=== PATIENT | male | born 1970 | race Caucasian/White ===

== ENCOUNTER → 2017-01-25 | Outpatient (CLI) | payer OTHER ==
[2017-01-25 12:46] LABS: BASO % 0.6 % (0.0-1.0); EOS # 0.2 K/mm3 (0.0-0.50); LARGE UNSTAINED CELL # 0.1 K/mm3 (0.0-0.4); LARGE UNSTAINED CELL % 1.6 % (0.0-4.0); LYMPH # 0.6 K/mm3 (1.5-4.5); LYMPH % 13.9 % (24.0-44.0); MEAN CORPUSCULAR HEMOGLOBIN 30.2 pg (27.0-33.0); MEAN CORPUSCULAR HGB CONC 34.4 g/dl (32.0-36.5); MEAN CORPUSCULAR VOLUME 87.8 fl (80.0-96.0); MONO # 0.4 K/mm3 (0.0-0.8); MONO % 9.8 % (0.0-5.0); NEUTROPHILS # 2.5 K/mm3 (1.8-7.7); NEUTROPHILS % 69.1 % (36.0-66.0); PLATELET COUNT, AUTOMATED 204 k/mm3 (150-450); RED CELL DISTRIBUTION WIDTH 13.2 % (11.5-14.5); WHITE BLOOD COUNT 3.6 K/mm3 (4.0-10.0)
[2017-01-25 13:27] LABS: ALBUMIN 3.5 GM/DL (3.2-5.2); ALBUMIN/GLOBULIN RATIO 1.09 (1.00-1.93); ALKALINE PHOSPHATASE 53 U/L (45-117); ALT/SGPT 35 U/L (12-78); ANION GAP 5 MEQ/L (8-16); AST/SGOT 18 U/L (15-37); BILIRUBIN,TOTAL 0.4 MG/DL (0.2-1.0); BLOOD UREA NITROGEN 16 MG/DL (7-18); CALCIUM LEVEL 9.1 MG/DL (8.5-10.1); CARBON DIOXIDE LEVEL 29 MEQ/L (21-32); CHLORIDE LEVEL 108 MEQ/L (98-107); CHOLESTEROL LEVEL 234 MG/DL (<200); CREATININE FOR GFR 1.19 MG/DL (0.70-1.30); GLOMERULAR FILTRATION RATE > 60.0 (>60); GLUCOSE, FASTING 89 MG/DL (70-105); POTASSIUM SERUM 4.2 MEQ/L (3.5-5.1); SODIUM LEVEL 142 MEQ/L (136-145); TOTAL PROTEIN 6.7 GM/DL (6.4-8.2); TRIGLYCERIDES LEVEL 153 MG/DL (<150)
== END ==
LOC: M WUC 08:30
PROVIDERS: ATTEND Emergency Medicine
DX: E78.2 Mixed hyperlipidemia (principal)

== ENCOUNTER → 2017-11-30 | Outpatient (CLI) | payer OTHER ==
[2017-11-30 12:35] LABS: BASO % 0.5 % (0.0-1.0); EOS # 0.3 10^3/uL (0.0-0.50); EOS % 7.7 % (0.0-3.0); HEMATOCRIT 47.3 % (42.0-52.0); HEMOGLOBIN 15.6 g/dl (13.5-17.5); IMMATURE GRANULOCYTE % 0.3 % (0-3.0); LYMPH # 0.7 10^3/uL (1.5-4.5); LYMPH % 17.6 % (24.0-44.0); MEAN CORPUSCULAR HEMOGLOBIN 28.3 pg (27.0-33.0); MEAN CORPUSCULAR VOLUME 85.8 fl (80.0-96.0); MONO # 0.5 10^3/uL (0.0-0.8); NEUTROPHILS # 2.3 10^3/uL (1.8-7.7); NEUTROPHILS % 61.9 % (36.0-66.0); PLATELET COUNT, AUTOMATED 216 10^3/uL (150-450); RED BLOOD COUNT 5.51 10^6/uL (4.30-6.10); RED CELL DISTRIBUTION WIDTH 13.2 % (11.5-14.5); WHITE BLOOD COUNT 3.8 10^3/uL (4.0-10.0)
[2017-11-30 12:54] LABS: ALBUMIN 3.6 GM/DL (3.2-5.2); ALBUMIN/GLOBULIN RATIO 1.06 (1.00-1.93); ALKALINE PHOSPHATASE 66 U/L (45-117); ALT/SGPT 49 U/L (12-78); ANION GAP 4 MEQ/L (8-16); AST/SGOT 26 U/L (7-37); BILIRUBIN,TOTAL 0.7 MG/DL (0.2-1.0); BLOOD UREA NITROGEN 17 MG/DL (7-18); CALCIUM LEVEL 8.8 MG/DL (8.5-10.1); CARBON DIOXIDE LEVEL 30 MEQ/L (21-32); CHLORIDE LEVEL 110 MEQ/L (98-107); CHOLESTEROL LEVEL 171 MG/DL (<200); CREATININE FOR GFR 1.16 MG/DL (0.70-1.30); GLOMERULAR FILTRATION RATE > 60.0 (>60); GLUCOSE, FASTING 84 MG/DL (70-100); HDL CHOLESTEROL 45 MG/DL (>40); LDL CHOLESTEROL 109.2 MG/DL (<100); NON-HDL-C 126 MG/DL; POTASSIUM SERUM 4.6 MEQ/L (3.5-5.1); SODIUM LEVEL 144 MEQ/L (136-145); TRIGLYCERIDES LEVEL 84 MG/DL (<150)
== END ==
LOC: M WUC 09:18
DX: E78.2 Mixed hyperlipidemia (principal)
CPT/HCPCS: 80053

== ENCOUNTER 2019-04-15 17:54 | Emergency (ER) | payer OTHER ==
[~2019-04-15] VITALS: Ht 175.3 cm; Wt 115.5 kg
[2019-04-15] MEDS ORDERED: ASPIRIN 81 MG CHEW TABLET PO ONE (18:15)
[2019-04-15] MEDS ORDERED: GI COCKTAIL 50ML BTL(HYOSCYAMINE/MAALOX/LIDOCAINE VISCOUS)(1:3:1) PO ONE (18:15)
[2019-04-15] MEDS ORDERED: ATOR1TAB21 PO (18:38)
[2019-04-15 18:43] LABS: BASO % 0.4 % (0.0-1.0); EOS # 0.4 10^3/uL (0.0-0.50); EOS % 8.8 % (0.0-3.0); HEMATOCRIT 47.3 % (42.0-52.0); HEMOGLOBIN 15.8 g/dl (13.5-17.5); LYMPH # 0.6 10^3/uL (1.5-4.5); LYMPH % 13.2 % (24.0-44.0); MEAN CORPUSCULAR HEMOGLOBIN 29.3 pg (27.0-33.0); MEAN CORPUSCULAR HGB CONC 33.4 g/dl (32.0-36.5); MEAN CORPUSCULAR VOLUME 87.8 fl (80.0-96.0); MONO # 0.7 10^3/uL (0.0-0.8); NEUTROPHILS % 63.4 % (36.0-66.0); PLATELET COUNT, AUTOMATED 227 10^3/uL (150-450); RED BLOOD COUNT 5.39 10^6/uL (4.30-6.10); WHITE BLOOD COUNT 4.8 10^3/uL (4.0-10.0)
[2019-04-15 19:06] LABS: INR 0.94; PROTHROMBIN TIME 12.3 SECONDS (11.8-14.0)
[2019-04-15 19:12] LABS: ALBUMIN 3.5 GM/DL (3.2-5.2); ALT/SGPT 32 U/L (12-78); BILIRUBIN,DIRECT 0.1 MG/DL (0.0-0.2); BILIRUBIN,TOTAL 0.5 MG/DL (0.2-1.0); BLOOD UREA NITROGEN 24 MG/DL (7-18); CARBON DIOXIDE LEVEL 24 MEQ/L (21-32); CHLORIDE LEVEL 109 MEQ/L (98-107); CK-MB VALUE MASS 1.1 NG/ML (<3.6); CPK CREATINE PHOSPHOKINASE 145 U/L (39-308); CREATININE FOR GFR 1.15 MG/DL (0.70-1.30); GLOMERULAR FILTRATION RATE > 60.0 (>60); GLUCOSE, FASTING 93 MG/DL (70-100); LIPASE 185 U/L (73-393); MB/CK RELATIVE INDEX 0.76 (< OR =4); POTASSIUM SERUM 4.1 MEQ/L (3.5-5.1); SODIUM LEVEL 142 MEQ/L (136-145); TROPONIN I < 0.02 NG/ML (< 0.10)
--- NOTE | 2019-04-15 19:16 | REP ---
Chest x-ray: Two views. History: Chest pain. Findings: There is a triangular opacity along the course of the minor fissure on the right which is most likely perihilar discoid atelectasis versus some fissural fluid. The pleural angles are sharp. Heart is not enlarged. Lung walker are otherwise clear. There are mild degenerative changes in the thoracic spine. Impression: Triangular opacity in the right mid lung field, atelectasis versus fissural fluid versus other parenchymal opacity. This measures 2.9 cm in greatest diameter. Consider chest CT study. Otherwise no acute disease. Electronically Signed by Giancarlo Klein MD 04/15/2019 07:27 P
[2019-04-15] MEDS ORDERED: SUCRALFATE SUSP 1GM/10ML UD PO ONE (19:30)
[2019-04-15] MEDS ORDERED: ISOVUE-370 76% 100ML VIAL (Q9967) As Ordered ONE (19:33)
[2019-04-15 19:50] VITALS: BP 122/71
--- NOTE | 2019-04-15 20:13 | REPVR ---
EXAM: CT Chest With Contrast EXAM DATE/TIME: 04/15/2019 7:41 PM CLINICAL HISTORY: 48 years old, male; Chest pain; Additional info: Opacity TECHNIQUE: Imaging protocol: Computed tomography of the chest with intravenous contrast. 3D rendering: MIP reconstructed images were created and reviewed. Radiation optimization: All CT scans at this facility use at least one of these dose optimization techniques: automated exposure control; mA and/or kV adjustment per patient size (includes targeted exams where dose is matched to clinical indication); or iterative reconstruction. Contrast material: ISOVUE 379; Contrast volume: 100 ml; Contrast route: IV; COMPARISON: CR Chest, 2 view PA, Lat 04/15/2019 6:53 PM FINDINGS: Lungs: Calcified granuloma noted in the left lower lobe. There are are multiple subcentimeter fuzzy nodules noted in both lungs There is right sided perihilar soft tissue thickening with subsegmental atelectasis noted in the anterior segment of the right upper lobe. There is nodular thickening of the intra-lobular septa in the area adjacent to the atelectasis in the right upper lobe . "Tree in bud" pattern of airspace disease noted in the posterior segment of the right upper lobe and in the posterior basal segment of the left lower lobe. Pleural space: Unremarkable. No pneumothorax. No pleural effusion. Heart: Unremarkable. No cardiomegaly. No pericardial effusion. Aorta: Unremarkable. No aortic aneurysm. Lymph nodes: Scattered right paratracheal lymph nodes noted. A right paratracheal lymph node measures 1.6 x 1 x 1.4 cm. Subcentimeter prevascular lymph nodes. Bones/joints: Unremarkable. No acute fracture. Soft tissues: Unremarkable. Liver: Multiple (too numerous to count) low density lesions are noted within the liver. Spleen: Multiple (too numerous to count) low density lesions are seen within the spleen IMPRESSION: 1. Multiple bilateral fuzzy pulmonary nodules with right perihilar soft tissue thickening and subsegmental atelectasis in the right upper lobe. The appearance suggests metastatic disease. 2. Multiple low density liver and splenic lesions. Rule out Metastatic disease Electronically signed by: Renetta Coburn On 04/15/2019 20:13:02 PM
[2019-04-15] MEDS ORDERED: PRIL20TA2 PO (20:33)
--- NOTE | 2019-04-16 20:41 | ECGEPIP ---
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
--- NOTE | 2019-04-19 07:32 | ED PDOC ---
Post-Departure Follow-Up dr leigh faxed formal report of ct chest for fu Donaldo Holley MD Apr 19, 2019 07:32
== END 2019-04-15 20:57 | disposition home or self-care (01) ==
LOC: M ED 17:54
DX: R91.1 Solitary pulmonary nodule (principal); K76.89 Other specified diseases of liver; D73.9 Disease of spleen, unspecified; Z79.899 Other long term (current) drug therapy
CPT/HCPCS: 36415; 71046; 71260; 80048; 80076; 82550; 82553; 83690; 84484; 85025; 85610; 93005; 93041; 94760; 99284; Q9967

== ENCOUNTER → 2019-07-15 | Outpatient (CLI) | payer OTHER ==
[~2019-07-15] MED LIST: ATOR1TAB21 PO; PRIL20TA2 PO
--- NOTE | 2019-07-16 14:20 | ECHO ---
DATE OF SERVICE: 07/15/2019 REFERRING PROVIDER: Dr. Montez Neal PATIENT LOCATION: Outpatient REASON FOR THE STUDY: Shortness of breath. 2D MEASUREMENTS: IVS: 1.0 cm LV: 5.9 cm LVPW: 1.0 cm LA: 4.2 cm Aorta: 3.7 cm RV: 3.4 cm IVC: 1.4 cm DOPPLER MEASUREMENTS: Peak velocity across the aortic valve: 1.2 m/s Peak velocity across the LVOT: 0.88 m/s Mitral E: 0.50 Mitral A: 0.51, with a ratio of about 1.0 2D COMMENTS: 1. Technically limited study due to poor acoustic window. 2. The left ventricular size subjectively appeared to be normal with normal left ventricular wall thickness and a low normal global left ventricular systolic function. The estimated left ventricular systolic inversion is 55-60%. 3. Mildly enlarged left atrium. The right atrium and the right ventricle in limited views appear to be normal in size but with increased left ventricular wall thickness. 4. The atrial septum appeared to be normal without evidence of defect or shunt. 5. Normal aortic root. 6. No pericardial effusion seen. 7. The aortic valve, mitral valve, and tricuspid valve appeared to be normal. The pulmonic valve also appeared to be normal. The proximal pulmonary artery branches were well visualized and may be mildly enlarged. 8. The inferior vena cava was normal in size, central venous pressure is probably normal. DOPPLER: No significant valvular abnormality detected. Abnormal relaxation pattern was noted across the mitral valve leaflets as well as the mitral annulus consistent with features of grade 1 left ventricular diastolic dysfunction. IMPRESSION: 1. Technically limited study due to poor acoustic window. 2. Low normal global left ventricular systolic function. There were some features of grade 1 left ventricular diastolic dysfunction manifested by abnormal relaxation. 3. No significant valvular abnormalities detected. Unable to assess pulmonary artery pressure.
== END ==
LOC: M CARPUL 13:00
PROVIDERS: ATTEND Internal Medicine Pulmonary Disease
DX: D86.2 Sarcoidosis of lung with sarcoidosis of lymph nodes (principal); R06.00 Dyspnea, unspecified

== ENCOUNTER → 2019-08-15 | Outpatient (CLI) | payer OTHER | LOC: M SLEEP 20:00 | PROVIDERS: ATTEND Internal Medicine Pulmonary Disease | DX: G47.33 Obstructive sleep apnea (adult) (pediatric) (principal) ==

== ENCOUNTER → 2019-09-06 | Outpatient (CLI) | payer OTHER | LOC: M SLEEP 20:00 | PROVIDERS: ATTEND Internal Medicine Pulmonary Disease | DX: G47.33 Obstructive sleep apnea (adult) (pediatric) (principal) ==

== ENCOUNTER → 2020-01-30 | Outpatient (CLI) | payer OTHER ==
[2020-01-30 18:21] LABS: ALBUMIN 3.4 GM/DL (3.2-5.2); ALT/SGPT 40 U/L (12-78); BILIRUBIN,TOTAL 0.7 MG/DL (0.2-1.0); BLOOD UREA NITROGEN 21 MG/DL (7-18); CALCIUM LEVEL 8.7 MG/DL (8.5-10.1); CARBON DIOXIDE LEVEL 29 MEQ/L (21-32); CHLORIDE LEVEL 107 MEQ/L (98-107); CHOLESTEROL LEVEL 176 MG/DL (<200); CHOLESTEROL RISK RATIO 4.512 (<5); CREATININE FOR GFR 1.14 MG/DL (0.70-1.30); GLOMERULAR FILTRATION RATE > 60.0 (>56); GLUCOSE, FASTING 79 MG/DL (70-100); HDL CHOLESTEROL 39 MG/DL (>40); LDL CHOLESTEROL 123 MG/DL (<100); NON-HDL-C 137 MG/DL; POTASSIUM SERUM 4.9 MEQ/L (3.5-5.1); SODIUM LEVEL 139 MEQ/L (136-145); TOTAL PROTEIN 7.2 GM/DL (6.4-8.2); TRIGLYCERIDES LEVEL 71 MG/DL (<150)
== END ==
LOC: M WUC 08:25
PROVIDERS: ATTEND Physician Assistant
DX: E78.2 Mixed hyperlipidemia (principal)

== ENCOUNTER → 2020-02-15 | Outpatient (CLI) | payer OTHER ==
[~2020-02-15] MED LIST changes: +OMEP20.6 PO
== END ==
LOC: M LABSMTC 10:47
PROVIDERS: ATTEND Anesthesiology
DX: Z01.818 Encounter for other preprocedural examination (principal); Z11.59 Encounter for screening for other viral diseases
CPT/HCPCS: C9803; U0003

== ENCOUNTER 2020-02-18 08:51 | Day surgery (SDC) | payer OTHER ==
[~2020-02-18] VITALS: Ht 175.3 cm; Wt 118.6 kg
[~2020-02-18 08:51] MED LIST changes: +NS 1,000 ML IV ONE; +propofoL 200 MG/20 ML VIAL As Ordered ONE
--- NOTE | 2020-02-18 11:30 | ROOR ---
Patient Name: Kayden Birmingham Procedure Date: 02/18/2020 11:00 AM Date of : 1970 Age: 49 Room: [facility] Gender: Male Note Status: Finalized Procedure: Colonoscopy Indications: Screening for colorectal malignant neoplasm, This is the patient's first colonoscopy Providers: Ruy Márquez MD Referring MD: CURTIS Whitten Requesting Provider: Medicines: Monitored Anesthesia Care Complications: No immediate complications. Procedure: Pre-Anesthesia Assessment: - Prior to the procedure, a History and Physical was performed, and patient medications and allergies were reviewed. The patient is competent. The risks and benefits of the procedure and the sedation options and risks were discussed with the patient. All questions were answered and informed consent was obtained. Patient identification and proposed procedure were verified by the physician, the nurse and the traveling sales representative in the procedure room. Mental Status Examination: alert and oriented. Airway Examination: normal oropharyngeal airway and neck mobility. CV Examination: regular rate and rhythm. Prophylactic Antibiotics: The patient does not require prophylactic antibiotics. Prior Anticoagulants: The patient has taken no previous anticoagulant or antiplatelet agents. ASA Grade Assessment: II - A patient with mild systemic disease. After reviewing the risks and benefits, the patient was deemed in satisfactory condition to undergo the procedure. The anesthesia plan was to use monitored anesthesia care (MAC). Immediately prior to administration of medications, the patient was re-assessed for adequacy to receive sedatives. The heart rate, respiratory rate, oxygen saturations, blood pressure, adequacy of pulmonary ventilation, and response to care were monitored throughout the procedure. The physical status of the patient was re-assessed after the procedure. The Colonoscope was introduced through the anus and advanced to the cecum, identified by appendiceal orifice and ileocecal valve. The colonoscopy was performed without difficulty. The patient tolerated the procedure well. The quality of the bowel preparation was good. Findings: The perianal and digital rectal examinations were normal. The colon (entire examined portion) appeared normal. Impression: - The entire examined colon is normal. - No specimens collected. Recommendation: - Discharge patient to home. - Resume previous diet. - Continue present medications. - Repeat colonoscopy in 10 years for screening purposes. Ruy Márquez MD Ruy Márquez MD 02/18/2020 11:30:22 AM Electronically signed by Ruy Márquez MD Number of Addenda: 0 Note Initiated On: 02/18/2020 11:00 AM Estimated Blood Loss: Estimated blood loss: none.
[2020-02-18 11:45] VITALS: BP 126/87
== END 2020-02-18 11:53 | disposition home or self-care (01) ==
LOC: M OPP 08:51
PROVIDERS: ATTEND Surgery
DX: Z12.11 Encounter for screening for malignant neoplasm of colon (principal); D86.9 Sarcoidosis, unspecified; G47.30 Sleep apnea, unspecified; Z79.899 Other long term (current) drug therapy; F17.210 Nicotine dependence, cigarettes, uncomplicated

== ENCOUNTER → 2020-03-03 | Outpatient (CLI) | payer OTHER ==
[~2020-03-03] MED LIST changes: +ASCO250T20 PO; +ESOM1CAP5 PO; -NS 1,000 ML IV ONE; -propofoL 200 MG/20 ML VIAL As Ordered ONE
--- NOTE | 2020-03-04 00:42 | REP ---
CT CHEST WITHOUT IV CONTRAST: COMPARISON: CT 04/15/2019. Multiple ill-defined nodular densities are again seen throughout both lungs, of varying sizes. On the right, these are essentially unchanged. On the left, several have slightly increased in size by a couple of millimeters. No new nodular opacities are seen. Multiple mediastinal lymph nodes are again seen without significant enlargement. The lymph nodes in the superior mediastinum have slightly increased in size but are not greater than 1 cm in short axis. There is no axillary adenopathy. Thoracic aorta is normal in caliber with no aneurysm. There is no cardiomegaly. There is no pleural or pericardial effusion. There are mild degenerative changes of the spine. Liver is heterogeneous. IMPRESSION: Multiple ill-defined nodular opacities bilaterally. These are essentially unchanged in appearance on the right. Several on the left have only minimally increased in size by a couple of millimeters. There is no definite new nodular opacity. Electronically Signed by Noel Wall MD 03/07/2020 09:14 A
== END ==
LOC: M RAD 14:58
PROVIDERS: ATTEND Internal Medicine Pulmonary Disease
DX: R91.8 Other nonspecific abnormal finding of lung field (principal)

== ENCOUNTER → 2020-04-19 | Outpatient (CLI) | payer OTHER ==
[~2020-04-19] MED LIST changes: +METHACHOLINE KIT (J7674) INH ONE
--- NOTE | 2020-04-28 11:47 | PFTRPT ---
Height: 67.00 Inches Weight: 261.00 Lbs BSA: 2.26 Diagnosis: R06.02 DATE OF STUDY: 04/19/2020 DATE: 04/19/2020 ORDERED BY: Aaron Farrell M.D. QUALITY: Study of excellent technical quality. PROCEDURE: Under protocol, methacholine was administered. With a dose of 2.5 mg or 13.875 CDUs, a 26% decline of the FEV1 was noted. PC of 1.06 is significant. Flow rates did return to baseline post-bronchodilator administration. IMPRESSION: Positive methacholine challenge study. MTDD
== END ==
LOC: M CARPUL 14:41
PROVIDERS: ATTEND Internal Medicine Pulmonary Disease
DX: R06.02 Shortness of breath (principal)
CPT/HCPCS: 94070; J7674

== ENCOUNTER 2020-05-02 15:58 | Inpatient (IN) | payer OTHER ==
[~2020-05-02] VITALS: Ht 175.3 cm; Wt 120.0 kg
[~2020-05-02 15:58] MED LIST changes: -ASCO250T20 PO; -ESOM1CAP5 PO; -METHACHOLINE KIT (J7674) INH ONE
[2020-05-02 16:51] LABS: BASO % 0.4 % (0.0-1.0); EOS # 0.2 10^3/uL (0.0-0.5); EOS % 4.1 % (0.0-3.0); HEMATOCRIT 47.2 % (42.0-52.0); HEMOGLOBIN 15.5 g/dl (13.5-17.5); LYMPH # 0.8 10^3/uL (1.5-5.0); LYMPH % 15.8 % (24.0-44.0); MEAN CORPUSCULAR HEMOGLOBIN 28.9 pg (27.0-33.0); MEAN CORPUSCULAR HGB CONC 32.8 g/dl (32.0-36.5); MEAN CORPUSCULAR VOLUME 87.9 fl (80.0-96.0); MONO # 0.7 10^3/uL (0.0-0.8); MONO % 12.8 % (0.0-5.0); NEUTROPHILS # 3.5 10^3/uL (1.5-8.5); NEUTROPHILS % 66.7 % (36.0-66.0); PLATELET COUNT, AUTOMATED 211 10^3/uL (150-450); RED BLOOD COUNT 5.37 10^6/uL (4.30-6.10); WHITE BLOOD COUNT 5.3 10^3/uL (4.0-10.0)
--- NOTE | 2020-05-02 17:04 | REPVR ---
PROCEDURE INFORMATION: Exam: XR Chest, 1 View Exam date and time: 05/02/2020 4:06 PM Age: 49 years old Clinical indication: Cough and dyspnea; Additional info: Dyspnea/cough TECHNIQUE: Imaging protocol: XR of the chest Views: 1 view. COMPARISON: CT Chest without contrast 03/03/2020 3:16 PM FINDINGS: Lungs: Somewhat linear shaped patchy parenchymal infiltrates demonstrated in the right mid and lower lung zone as well as the left mid and lower lung zones may represent atelectasis although foci of pneumonitis not excluded. Findings compatible with that demonstrated on prior thoracic CT of 03/03/2020 although direct comparison not possible. Pleural space: Unremarkable. No pleural effusion. No pneumothorax. Heart/Mediastinum: Heart projects enlarged in the AP view. Bones/joints: See "Lungs" finding. IMPRESSION: Somewhat linear shaped patchy parenchymal infiltrates demonstrated in the right mid and lower lung zone as well as the left mid and lower lung zones may represent atelectasis although foci of pneumonitis not excluded. Findings compatible with that demonstrated on prior thoracic CT of 03/03/2020 although direct comparison not possible. Electronically signed by: Lito Salmon On 05/02/2020 17:03:54 PM
[2020-05-02] MEDS ORDERED: ESOM1CAP5 PO (17:09)
[2020-05-02 17:17] LABS: ALBUMIN 3.7 GM/DL (3.2-5.2); BILIRUBIN,DIRECT 0.1 MG/DL (0.0-0.2); BILIRUBIN,TOTAL 0.5 MG/DL (0.2-1.0); CALCIUM LEVEL 9.2 MG/DL (8.5-10.1); CREATININE FOR GFR 1.42 MG/DL (0.70-1.30); GLOMERULAR FILTRATION RATE 56.2 (>56); MAGNESIUM LEVEL 2.3 MG/DL (1.8-2.4); THYROID STIMULATING HORMONE 0.541 uIU/ML (0.358-3.740); TOTAL PROTEIN 7.5 GM/DL (6.4-8.2)
[2020-05-02 17:18] LABS: INR 0.98; PROTHROMBIN TIME 13.2 SECONDS (11.8-14.0)
[2020-05-02] MEDS ORDERED: ACETAMINOPHEN TAB 650MG DOSE (2X325MG) PO PRN (17:45)
--- NOTE | 2020-05-02 17:53 | HPEPDOC ---
[facility] Medical History & Physical Date of Admission May 02, 2020 Date of Service: May 02, 2020 History and Physical Chief complaint: Presented to the hospital with complaints of lightheadedness and dizziness History of present illness: Patient is a 49-year-old male with a PMHx of Asthma, Sarcoidosis, DLP, and GERD who presented to the emergency room after experiencing a 2 month history of lightheadedness and dizziness. Patient was recently seen by his photovoltaic technician, who had noted bradycardia and sent him to the emergency room for further evaluation. Currently patient denies any loss of consciousness or falls. Denies any chest pain but does report palpitations with exertion. He does report shortness of breath anytime he exerts himself. Patient denies any nausea, vomiting or diaphoresis. Denies any abdominal pain, constipation, diarrhea, or urinary discomfort. Denies any fevers or chills. Denies difficulty with ambulation. 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 Review of Systems: 10 point review of systems complete, all negative otherwise stated in HPI Physical exam: - Vitals: BP [186/83], HR [43], RR [22], Sat [99%RA], Temp [98.8F] - General: Lying in bed, Speaking in full sentences, AAOx3 - HEENT: NC, AT, PERRLA, EOMI - CVS: Bradycardic, +S1S2 - Lungs: Fair air entry bilaterally, No appreciable wheezing / rales / rhonchi - Abdomen: Soft, Non-distended, Non-tender - Extremities: No lower extremity edema, No calf tenderness - Neuro: No focal motor or sensory deficit - Skin: No visible rashes Assessment and Plan: Symptomatic bradycardia - likely 2/2 Complete heart block - possibly 2/2 sarcoidosis - Presented to the emergency room with lightheadedness and dizziness and shortness of breath with exertion over the last 2 months - Patient is currently astigmatic at rest. Denies any chest pain, palpitations or shortness of breath - Patient remains hemodynamically stable - Cardiac markers noted to be negative in the emergency room - EKG reveals complete heart block - Will place patient in progressive care unit with telemetry - Discussed case with cardiology, Dr. Montalvo will be on consultation; plan for pacemaker placement tomorrow - Nothing by mouth post-midnight and COVID testing as per OR policy ROSALIE on CKD - Baseline Cr of 1.1-1.3 - No signs of fluid overload; no crackles or LE edema - Mild BNP elevation; likely 2/2 complete heart block - CXR 05/02: Somewhat linear shaped patchy parenchymal infiltrates demonstrated in the right mid and lower lung zone as well as the left mid and lower lung zones may represent atelectasis although foci of pneumonitis not excluded. Findings compatible with that demonstrated on prior thoracic CT of 03/03/2020 although direct comparison not possible. - Will start very gentle hydration for 1 liter only Atelectasis - Will start incentive spirometry Asthma / Sarcoidosis - Patient does not take any inhaler therapy as an outpatient - Follows with Dr. Farrell of pulmonology DLP - c/w Atorvastatin GERD - c/w PPI DVT prophylaxis - Will start TEDs/Sequentials Vital Signs Vital Signs Date Time Temp Pulse Resp B/P (MAP) Pulse Ox O2 Delivery O2 Flow Rate FiO2 05/02/20 16:45 05/02/20 15:59 98.8 43 22 99 Room Air Laboratory Data Labs 24H Laboratory Tests 2 05/02/20 16:28: Immature Granulocyte % (Auto) 0.2, Neutrophils (%) (Auto) 66.7H, Lymphocytes (%) (Auto) 15.8L, Monocytes (%) (Auto) 12.8H, Eosinophils (%) (Auto) 4.1H, Basophils (%) (Auto) 0.4, Neutrophils # (Auto) 3.5, Lymphocytes # (Auto) 0.8L, Monocytes # (Auto) 0.7, Eosinophils # (Auto) 0.2, Basophils # (Auto) 0.0, Nucleated Red Blood Cells % (auto) 0.0, Anion Gap 3L, Glomerular Filtration Rate 56.2, Calcium Level 9.2, Magnesium Level 2.3, Total Bilirubin 0.5, Direct Bilirubin 0.1, Aspartate Amino Transf (AST/SGOT) 19, Alanine Aminotransferase (ALT/SGPT) 28, Alkaline Phosphatase 84, OP-Jng-F-Type Natriuretic Peptide 418H, Total Protein 7.5, Albumin 3.7, Albumin/Globulin Ratio 1.0, Thyroid Stimulating Hormone (TSH) 0.541 05/02/20 16:39: POC Glucose (Misc Panel) 95, POC Sodium (Misc Panel) 141, POC Potassium (Misc Panel) 4.0, POC Chloride (Misc Panel) 104, POC Total CO2 (Misc Panel) 25.0, POC Blood Urea Nitrogen (Misc Panel 28H, POC Ionized Calcium (Misc Panel) 4.8, POC Creatinine (Misc Panel) 1.4H, POC Hematocrit (Misc Panel) 46.0 05/02/20 16:41: Prothrombin Time 13.2, Prothromb Time International Ratio 0.98 05/02/20 16:45: POC Troponin I (Misc) 0.01 CBC/BMP Laboratory Tests 05/02/20 16:28 Home Medications Scheduled Atorvastatin Calcium (Atorvastatin Calcium) 20 Mg Tablet, 20 MG PO QHS Esomeprazole Magnesium (Esomeprazole Magnesium) 40 Mg Capsule.dr, 40 MG PO QHS Allergies Coded Allergies: No Known Drug Allergies (Verified Allergy, Unknown, 04/15/19) ABDI KONG MD May 02, 2020 17:53
[2020-05-02] MEDS ORDERED: NS 1,000 ML IV SCH (18:00)
[2020-05-02 20:00] VITALS: BP 152/68
[2020-05-02] MEDS: ATORVASTATIN 20 MG TAB PO SCH (21:21)
[2020-05-03] VITALS (11 sets, daily range): BP systolic 121–159; BP diastolic 67–94
[2020-05-03 06:14] LABS: HEMATOCRIT 47.4 % (42.0-52.0); HEMOGLOBIN 15.5 g/dl (13.5-17.5); MEAN CORPUSCULAR HEMOGLOBIN 28.6 pg (27.0-33.0); MEAN CORPUSCULAR HGB CONC 32.7 g/dl (32.0-36.5); MEAN CORPUSCULAR VOLUME 87.5 fl (80.0-96.0); PLATELET COUNT, AUTOMATED 196 10^3/uL (150-450); RED BLOOD COUNT 5.42 10^6/uL (4.30-6.10); WHITE BLOOD COUNT 5.5 10^3/uL (4.0-10.0)
[2020-05-03 06:46] LABS: BLOOD UREA NITROGEN 21 MG/DL (7-18); CALCIUM LEVEL 8.8 MG/DL (8.5-10.1); CARBON DIOXIDE LEVEL 27 MEQ/L (21-32); CHLORIDE LEVEL 106 MEQ/L (98-107); CREATININE FOR GFR 1.21 MG/DL (0.70-1.30); GLOMERULAR FILTRATION RATE > 60.0 (>56); GLUCOSE, FASTING 82 MG/DL (70-100); MAGNESIUM LEVEL 2.3 MG/DL (1.8-2.4); POTASSIUM SERUM 4.1 MEQ/L (3.5-5.1); SODIUM LEVEL 136 MEQ/L (136-145)
[2020-05-03] MEDS: OMEPRAZOLE 20 MG CAP PO SCH (08:46)
[2020-05-03] MEDS ORDERED: ASCORBIC ACID 250 MG TAB PO SCH (09:00)
[2020-05-03] MEDS ORDERED: LR 1,000 ML IV SCH ×2 (09:45→20:45)
--- NOTE | 2020-05-03 11:34 | IPNPDOC ---
Text Note Date of Service The patient was seen on 05/03/20. NOTE Subjective: Patient is a 49-year-old male with a PMHx of Asthma, Sarcoidosis, DLP, and GERD who presented to the emergency room after experiencing a 2 month history of lightheadedness and dizziness. 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 On arrival to emergency room, patient was found to have complete heart block. Hospitalist service was called for evaluation. Cardiology was called on consultation. Patient was seen and examined at the bedside. Patient has had an uneventful evening. Denies any lightheadedness, dizziness or shortness of breath. Denies an y chest pain or palpitations. Denies nausea, vomiting, abdominal pain, diarrhea, or urinary discomfort. Objective: Vitals (See below) General: Lying in bed, appears comfortable, AAOx3 HEENT: NC, AT CVS: Bradycardia, +S1S2 Lungs: Fair air entry b/l, the patient wheezing, rhonchi or rales Abdomen: Soft, ND, NT Extremities: No evidence of LE edema, - Calf tenderness Assessment and plan: Symptomatic bradycardia - likely 2/2 Complete heart block - possibly 2/2 sarcoidosis, possibly 2/2 Lyme disease - Presented to the ER with lightheadedness and dizziness and shortness of breath with exertion over the last 2 months - Currently patient denies any chest pain, shortness of breath or palpitations - Hemodynamically stable - Troponin negative - Lyme serology pending - EKG reveals complete heart block - ECHO pending - c/w progressive care unit and telemetry - Discussed case with cardiology, Dr. Montalvo will be on consultation; plan for pacemaker today s/p ROSALIE on CKD - Baseline Cr of 1.1-1.3; Cr is now at baseline - No signs of fluid overload; no crackles or LE edema - Mild BNP elevation; likely 2/2 complete heart block - CXR 05/02: Somewhat linear shaped patchy parenchymal infiltrates demonstrated in the right mid and lower lung zone as well as the left mid and lower lung zones may represent atelectasis although foci of pneumonitis not excluded. Findings compatible with that demonstrated on prior thoracic CT of 03/03/2020 although direct comparison not possible. - s/p Gentle IV fluid hydration Atelectasis - c/w incentive spirometry Asthma / Sarcoidosis - Patient does not take any inhaler therapy as an outpatient - Follows with Dr. Farrell of pulmonology DLP - c/w Atorvastatin GERD - c/w PPI DVT prophylaxis - c/w TEDs/Sequentials VS,Fishbone, I+O VS, Fishbone, I+O Laboratory Tests 05/02/20 16:28 05/03/20 05:45 Vital Signs Date Time Temp Pulse Resp B/P (MAP) Pulse Ox O2 Delivery O2 Flow Rate FiO2 05/03/20 08:00 98.1 40 18 149/80 (103) 92 Room Air I&O- Last 24 Hours up to 6 AM 05/03/20 05:59 Intake Total 300 ml Output Total 1500 ml Balance -1200 ml ABDI KONG MD May 03, 2020 11:34
[2020-05-03] MEDS ORDERED: ceFAZolin SOD 1 GM in D5W MINI-BAG PLUS 50 ML IV ONE (14:00)
[2020-05-03] MEDS ORDERED: ceFAZolin SOD 3 GM in IV 1 EA IV ONE (14:00)
[2020-05-03] MEDS ORDERED: ceFAZolin SOD 2 GM in IV 1 EA IV ONE (14:00)
[2020-05-03] MEDS ORDERED: fentaNYL 100 MCG/2 ML INJECTION (J3010) As Ordered ONE ×3 (16:24→19:59)
[2020-05-03] MEDS ORDERED: propofoL 200 MG/20 ML VIAL As Ordered ONE ×3 (16:24→19:22)
[2020-05-03] MEDS ORDERED: MIDAZOLAM INJ 2MG/2ML VIAL (J2250 PER 1MG) As Ordered ONE ×2 (16:25→18:41)
[2020-05-03] MEDS ORDERED: LIDOCAINE 1% SDV 30ML VIAL As Ordered ONE (16:28)
[2020-05-03] MEDS ORDERED: ISOVUE-300 61% 50ML VIAL As Ordered ONE ×2 (16:28→17:50)
[2020-05-03] MEDS ORDERED: LIDOCAINE 2% 100MG/5ML SDV (FOR ANES.) As Ordered ONE (16:28)
[2020-05-03] MEDS ORDERED: MUPIROCIN 2% OINT 22 GM TUBE As Ordered ONE (16:29)
[2020-05-03] MEDS ORDERED: PERCOCET 5MG/325MG TAB PO PRN (20:45)
[2020-05-03] MEDS ORDERED: METOCLOPRAMIDE INJ 10MG/2ML VIAL (J2765 PER 1) IV PRN (20:45)
[2020-05-03] MEDS ORDERED: fentaNYL 100 MCG/2 ML INJECTION (J3010) IV PRN (20:45)
[2020-05-03] MEDS ORDERED: ONDANSETRON 4MG/2ML VIAL IV PRN (20:45)
[2020-05-03] MEDS ORDERED: NS 1,000 ML IV SCH (21:30)
[2020-05-03] MEDS: ASCORBIC ACID 250 MG TAB PO SCH (22:24)
[2020-05-03] MEDS: ATORVASTATIN 20 MG TAB PO SCH (22:24)
[2020-05-04] VITALS: BP 142/76
--- NOTE | 2020-05-04 00:35 | ECGEPIP ---
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
[2020-05-04 01:00] VITALS: BP 125/71
[2020-05-04 02:00] VITALS: BP 125/64
[2020-05-04 03:00] VITALS: BP 118/76
[2020-05-04 04:00] VITALS: BP 140/64
[2020-05-04 06:10] LABS: HEMATOCRIT 44.5 % (42.0-52.0); HEMOGLOBIN 14.4 g/dl (13.5-17.5); MEAN CORPUSCULAR HEMOGLOBIN 28.6 pg (27.0-33.0); MEAN CORPUSCULAR HGB CONC 32.4 g/dl (32.0-36.5); MEAN CORPUSCULAR VOLUME 88.5 fl (80.0-96.0); PLATELET COUNT, AUTOMATED 175 10^3/uL (150-450); RED BLOOD COUNT 5.03 10^6/uL (4.30-6.10); WHITE BLOOD COUNT 5.9 10^3/uL (4.0-10.0)
[2020-05-04 06:27] LABS: BLOOD UREA NITROGEN 24 MG/DL (7-18); CALCIUM LEVEL 8.5 MG/DL (8.5-10.1); CARBON DIOXIDE LEVEL 25 MEQ/L (21-32); CHLORIDE LEVEL 108 MEQ/L (98-107); CREATININE FOR GFR 1.16 MG/DL (0.70-1.30); GLOMERULAR FILTRATION RATE > 60.0 (>56); GLUCOSE, FASTING 146 MG/DL (70-100); MAGNESIUM LEVEL 2.4 MG/DL (1.8-2.4); POTASSIUM SERUM 4.1 MEQ/L (3.5-5.1); SODIUM LEVEL 138 MEQ/L (136-145)
[2020-05-04 08:00] VITALS: BP 144/64
--- NOTE | 2020-05-04 08:06 | CR ---
DATE OF CONSULTATION: 05/02/2020 REFERRING PHYSICIAN: Dr. Sha Dejesus REASON FOR CONSULTATION: Symptomatic third-degree atrioventricular (AV) block. HISTORY OF PRESENT ILLNESS: Mr. Kayden Birmingham is a pleasant 49-year-old man with sarcoidosis, obesity, and hypercholesterolemia who presented to [facility] Emergency Room (ER) today with complaints of lightheadedness and dizziness (no vertigo). He has noticed over the past 2 months, but especially in the past 1 month, worsening exertional shortness of breath such that he would get exertional shortness of breath walking from the door of his truck to the tailgate and opening the tailgate. He has not been having any orthopnea or paroxysmal nocturnal dyspnea (PND), cough or sputum, or wheezing. No leg or ankle swelling. He has been having intermittent lightheadedness and dizziness but not to the point of presyncope or syncope. The lightheadedness has been occurring for about a month. He was seen by his lung physician earlier today and noted to have a slow heartbeat and was therefore sent to the ER. The electrocardiogram in the ER showed the patient to have complete heart block with a slow ventricular rate. No chest pain or chest discomfort with or without exertion. No numbness, localized weakness, or loss of speech or vision. No intermittent claudication. He has been noticing transient palpitations with exertional shortness of breath. MEDICAL HISTORY: 1. Sarcoidosis. 2. Hypercholesterolemia. 3. Gastroesophageal reflux disease (GERD). 4. Asthma. 5. Status post appendectomy. 6. Status post abdominal hernia repair as an infant. ALLERGIES: No known adverse drug reactions. MEDICATIONS PRIOR TO ADMISSION: - atorvastatin 20 mg at bedtime - Nexium 40 mg every night CURRENT HOSPITAL MEDICATIONS: - omeprazole 40 mg daily - atorvastatin 20 mg every night - normal saline 60 mL per hour intravenous (IV) - acetaminophen 650 mg every 6 hours as needed FAMILY HISTORY: Father had lung cancer and bladder cancer. He has a sister with history of ovarian cancer. SOCIAL HISTORY: Nonsmoker. No illicit drugs. Consumes two-three beers twice a week. Lives with his . Drives [employer] for [facility]. All other 10-point review of systems negative other than those described in the history of present illness (HPI). PHYSICAL EXAMINATION: A pleasant man who appears his chronologic age who is not in any respiratory or psychologic distress. Obesity. Height 69 inches, weight 121.5 kg, body mass index (BMI) 39.6. Temperature 98.8, pulse 35, respiratory rate 18, blood pressure (BP) 135/62, oxygen saturation 97% on room air. No conjunctival pallor, scleral icterus, or xanthomas. Some dental fillings and some missing teeth. Oral mucosa is moist and without pallor or cyanosis. Jugular venous pulsations were at 3 cm with occasional burger A wave. Trachea midline. No palpable thyroid. No clubbing, nailbed stenosis, or splinter hemorrhages. No skin lesions, skin pallor, or icterus. Oriented to person, place, and time. Mood and affect normal. Curvature of the spine normal. Gait not tested (presently on bed rest). Gross motor strength and tone appeared normal. No fasciculations, tremors, or muscle atrophy. Respiratory expansion effort was good. No crackles or wheezes. No dullness to percussion. No palpable apex beat. No left parasternal lifts, heaves, thrills, or palpable heart sounds. First heart sound was decreased in intensity. Second heart sound was normal. No S3 or S4. No murmurs appreciated. No pericardial friction rubs. No systolic clicks. Carotids were normal in volume and contour and without bruits. No palpable abdominal aorta but difficult to palpate due to abdominal obesity. Femoral pulse normal. Pedal pulse normal. No peripheral edema in the legs. No varicose veins. Abdomen was obese, soft, nontender with normal bowel sounds. Liver span difficult to percuss due to abdominal obesity. No hepatosplenomegaly or other organomegaly but difficult to assess due to abdominal obesity. Stool for occult blood not presently indicated. INVESTIGATIONS: Electrocardiogram 05/02/2020 at 1629 hours shows sinus rhythm with complete heart block with slow ventricular response with overall ventricular rate of 42 beats per minute (BPM), moderate nonspecific QRS widening (conduction delay). Single-view chest x-ray 05/02/2020 reported "somewhat linear-shaped patchy parenchymal infiltrates demonstrated in the right mid and lower lung zones as well as left mid and lower lung zones may represent atelectasis, although foci of pneumonitis cannot be excluded. Findings compatible with that of the prior thoracic CT of 03/03/2020, although direct comparison not possible. LABORATORY DATA: On 05/02/2020 was reviewed: Sodium 139, potassium 4.0, chloride 108, CO2 of 28, BUN 27, creatinine 1.42, estimated GFR 56.2, glucose 91, calcium 9.2, magnesium 2.3. NTproBNP 418. Total protein 7.5, albumin 3.7. TSH 0.541. PT/INR 0.98. WBC 15.3, hemoglobin 15.5, hematocrit 47.2, platelets 211. 1. Symptomatic complete heart block. The etiology of the patient's complete heart block is not known but with the patient's history of sarcoidosis, cardiac sarcoidosis remains a possibility. It may be just premature degenerative conduction system disease. Lyme disease is always a possibility, and I will order Lyme titers. The plan will be to implant a permanent dual-chamber pacemaker. Pacemaker implantation was discussed with the patient and his (via the patient's cell phone via speaker phone function). The alternative of no pacemaker was discussed with the patient (increased risk for syncope and sudden cardiac without a pacemaker). Risks of pacemaker implantation were explained to the patient, including but not all inclusive: Infection (1%), pneumothorax (1%), bleeding, poor wound healing, adverse drug reaction, cardiac dysrhythmias, lead dislodgement, cardiac perforation with cardiac tamponade. Both the patient and his were agreeable to proceed with permanent pacemaker implantation. The patient signed a consent form. The plan will be to proceed with implantation of permanent dual-chamber pacemaker tomorrow. 2. Lightheadedness. Patient's lightheadedness is secondary to complete heart block with slow ventricular response. Hopefully this resolves following implantation of a permanent pacemaker. 3. Hypercholesterolemia. Continue statin therapy. Recommend a DASH diet or more whole food, plant-based diet. 4. Heart failure, unspecified. Mildly elevated NTproBNP level, likely secondary to complete heart block with slow ventricular response. I will order an echocardiogram Doppler to distinguish between systolic versus diastolic heart failure. 5. Obesity. I suggest a low-fat, whole food, plant-based diet. MTDD
[2020-05-04] MEDS ORDERED: ASCO250T20 PO (08:20)
[2020-05-04] MEDS: OMEPRAZOLE 20 MG CAP PO SCH (09:34)
[2020-05-04] MEDS: ASCORBIC ACID 250 MG TAB PO SCH (09:35)
--- NOTE | 2020-05-04 10:06 | DS.PDOC ---
Discharge Summary General Date of Admission May 02, 2020 at 17:33 Date of Discharge 05/04/2020 Discharge Summary PROCEDURES PERFORMED DURING STAY: Pacemaker placement 05/03/20, [address] Montalvo ADMITTING DIAGNOSES / DISCHARGE DIAGNOSES: s/p Symptomatic bradycardia - likely 2/2 Complete heart block - possibly 2/2 sarcoidosis, possibly 2/2 Lyme disease s/p ROSALIE on CKD Atelectasis Asthma / Sarcoidosis DLP GERD DVT prophylaxis COMPLICATIONS/CHIEF COMPLAINT: Shortness of breath / Dizziness HISTORY OF PRESENT ILLNESS: Patient is a 49-year-old male with a PMHx of Asthma, Sarcoidosis, DLP, and GERD who presented to the emergency room after experiencing a 2 month history of lightheadedness and dizziness. Patient was recently seen by his curriculum counselor, who had noted bradycardia and sent him to the emergency room for further evaluation. On arrival to emergency room, patient was found to have complete heart block. Hospitalist service was called for evaluation. Cardiology was called on consultation. HOSPITAL COURSE: s/p Symptomatic bradycardia - likely 2/2 Complete heart block - possibly 2/2 sarcoidosis, possibly 2/2 Lyme disease - Presented to the ER with lightheadedness and dizziness and shortness of breath with exertion over the last 2 months - Patient is asymptomatic and continues to remain asymptomatic during induration - Hemodynamically stable - Troponin negative - Lyme serology pending - EKG on admission reveals complete heart block; telemetry now reveals a paced r hythm - ECHO complete; will have outpatient follow up with Dr. Montalvo - c/w progressive care unit and telemetry - Cardiology, Dr. Montalvo on consultation; s/p pacemaker 05/03 - Will have outpatient follow up with Cardiology within 7 days s/p ROSALIE on CKD - Baseline Cr of 1.1-1.3; Cr is now at baseline - No signs of fluid overload; no crackles or LE edema - Mild BNP elevation; likely 2/2 complete heart block - CXR 05/02: Somewhat linear shaped patchy parenchymal infiltrates demonstrated in the right mid and lower lung zone as well as the left mid and lower lung zones may represent atelectasis although foci of pneumonitis not excluded. Findings compatible with that demonstrated on prior thoracic CT of 03/03/2020 although direct comparison not possible. - s/p Gentle IV fluid hydration Atelectasis - c/w incentive spirometry Asthma / Sarcoidosis - Patient does not take any inhaler therapy as an outpatient - Follows with Dr. Farrell of pulmonology DLP - c/w Atorvastatin GERD - c/w PPI DVT prophylaxis - c/w TEDs/Sequentials DISCHARGE MEDICATIONS: Please see below. ALLERGIES: Please see below. PHYSICAL EXAMINATION ON DISCHARGE: Vitals (See below) General: Lying in bed, no acute distress, comfortable, AAOx3 HEENT: NC, AT CVS: RRR, +S1S2 Lungs: Fair air entry b/l, auscultations is free of rhonchi, rales or wheezing Abdomen: Soft, ND, NT Extremities: No evidence of edema, - Calf tenderness LABORATORY DATA: Please see below. ACTIVITY: [As tolerated]. DISCHARGE PLAN: Follow-up with PCP and Dr. Montalvo within 7 days Remain compliant with treatment plan and medications Return to the ER if you experience any problems DISPOSITION: Home DISCHARGE CONDITION: [Stable]. TIME SPENT ON DISCHARGE: 35 minutes Vital Signs/I&Os Vital Signs Date Time Temp Pulse Resp B/P (MAP) Pulse Ox O2 Delivery O2 Flow Rate FiO2 05/04/20 08:00 98.0 62 18 144/64 (90) 98 Nasal Cannula 2.0 I&O- Last 24 Hours up to 6 AM 05/04/20 05:59 Intake Total 2030 ml Output Total 1650 ml Balance 380 ml Laboratory Data Labs 24H Laboratory Tests 2 05/04/20 05:37: Nucleated Red Blood Cells % (auto) 0.0, Anion Gap 5L, Glomerular Filtration Rate > 60.0, Calcium Level 8.5, Magnesium Level 2.4 CBC/BMP Laboratory Tests 05/04/20 05:37 Discharge Medications Scheduled Ascorbic Acid (Vitamin C) 250 Mg Tablet, 250 MG PO BID Atorvastatin Calcium (Atorvastatin Calcium) 20 Mg Tablet, 20 MG PO QHS, (Reported) Esomeprazole Magnesium (Esomeprazole Magnesium) 40 Mg Capsule., 40 MG PO QHS, (Reported) Allergies Coded Allergies: No Known Drug Allergies (Verified Allergy, Unknown, 04/15/19) ABDI KONG MD May 04, 2020 10:05
--- NOTE | 2020-05-04 10:10 | ECHO ---
DATE OF PROCEDURE: 05/03/2020 Age: Gender: Male Height: 175 cm Weight: 122 kg REFERRING PHYSICIAN: Isaac Montalvo M.D. INDICATION: Heart failure, unspecified. MEASUREMENTS: 2D Measurements: Left atrium 4.4 cm Intraventricular septum 1.07 cm Posterior wall 1.10 cm Left ventricle diastole 5.6 cm Aortic root 3.6 cm Inferior vena cava 1.8 cm with more than 50% respiratory variation Doppler Measurements: No aortic regurgitation No aortic stenosis Aortic valve velocity 145 cm/s LVOT velocity 120 cm/s LVOT VTI 23.1 cm No mitral regurgitation No mitral stenosis Mitral E velocity 94.3 cm/s Mitral A velocity 74.0 cm/s Mitral deceleration time 158 msec Very mild tricuspid regurgitation Very mild pulmonic regurgitation Estimated right ventricular systolic pressure could not be determined on this study. Pulmonary artery systolic pressure could not be determined on this study. MITRAL ANNULAR TISSUE DOPPLER E prime septal 12.7 cm/s, E prime lateral 10.6 cm/s DESCRIPTION: Rhythm was sinus with complete heart block with slow ventricular rate mostly in the 30s. Image quality was adequate. This was a 2D, M-mode, color flow Doppler, and pulsed wave Doppler examination including mitral annular tissue Doppler. CONCLUSIONS: 1. Normal left ventricle internal dimensions when one takes the body size into account. Normal LV wall thickness. Normal regional LV wall motion and wall thickening. Normal LV systolic function. LVEF 55% by visual estimate. Normal LV diastolic function. 2. Mild left atrial dilatation. 3. Otherwise normal appearing echocardiogram Doppler findings. MTDD
[2020-05-04 16:18] LABS: Lyme Disease IgG/IgM Antibodie <0.91 ISR (0.00-0.90); Lyme Disease IgM Ab Quantitati <0.80 index (0.00-0.79)
--- NOTE | 2020-05-11 16:30 | ECGEPIP ---
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
--- NOTE | 2020-05-16 15:10 | RO ---
DATE OF OPERATION: 05/03/2020 PREOPERATIVE DIAGNOSIS: Complete heart block. POSTOPERATIVE DIAGNOSIS: Complete heart block. FINDINGS: Complete heart block. PROCEDURE PERFORMED: Implantation of a permanent Medtronic dual-chamber pacemaker (right pectoral region implant). SURGEON: Isaac Montalvo M.D. CLINICAL OB: None. ANESTHESIA: Lidocaine 1% local/monitored anesthetic care. SPECIMENS: None. ESTIMATED BLOOD LOSS: Less than 10 mL. BLOOD PRODUCTS: None. DRAINS: None. COMPLICATIONS: None. PROCEDURE DESCRIPTION: Patient was prepped and draped over the left pectoral region. 3M Ioban film was applied. Lidocaine 1% was used for local anesthetic. Several left subclavian venograms were performed via a peripheral vein in the left upper extremity for a total amount of 50 mL of contrast used on that side. The left subclavian vein and left axillary vein were very small in diameter and very stringy. I was unsuccessful at percutaneous entry into the left subclavian vein. I also tried a few attempts using anatomic landmarks aiming for the suprasternal notch and being 1.5 cm caudal and at the distal two-thirds of the clavicle point and was unsuccessful getting into the left subclavian vein. I therefore switched to right-sided implant. A right subclavian venogram was performed and several attempts were used to get into the right subclavian vein in realtime ensuring the injection of the contrast. Ultimately this was not successful. The vein was fairly poorly visualized. I then switched to anatomic landmarks using needle that came with one of the 7-Ugandan introducer kits and I was successful getting venous access to the left subclavian vein. Guidewire was placed. Incision approximately 2.5 inches in length was made 1 cm below the entry site of the guidewire using PEAK PlasmaBlade. The PEAK PlasmaBlade was used to get through the fatty layer and the fibrous Esau's fascia. The pacemaker pocket was then formed in a caudal direction using blunt dissection using two fingers and applying cautery as well. Next I pulled the guidewire through the skin into the incision site. I then placed a 7-Ugandan sheath with introducer over the guidewire. The guidewire was left in place and the sheath was left in place and the introducer was removed. I took a guidewire from the other 7-Ugandan sheath and placed it inside this 7-Ugandan sheath alongside the other guidewire. The 7-Ugandan sheath was removed leaving the two guidewires in the vein. I then placed the introducer back into the sheath and advanced the sheath and introducer over one of the two guidewires. This was used for vein access for the right ventricular lead which was placed under fluoroscopic guidance in the region of the right ventricle apex with a total of 10 turns. This position was found to be electrically and anatomically satisfactory. I then placed another introducer/7-Ugandan sheath over the other guidewire and advanced into the vein. This was used for vein access for the right atrial lead. The right atrial lead was placed in the vicinity of the right atrial appendage with the help of preformed J-stylet and was secured with total of 10 turns. This position was found to be electrically and anatomically satisfactory. The atrial and ventricular leads were secured to the pectoral muscle using the supplied tie-down sleeves with two individual sutures on each sleeve to secure to the pectoral muscle with suture material consisting of #0 Ethibond. I then took an additional #0 Ethibond suture and placed to the pectoral muscle in the floor of the pocket to serve as the tie-down for the pacemaker pulse generator. The internal pins of the ventricular and atrial leads were plugged into their respective ports of the header of the pacemaker pulse generator and each one was secured by tightening the set screws with the hex screwdriver. The excess lead material was curled underneath the pacemaker pulse generator and placed along with the pacemaker pulse generator into the pocket with excess lead material below and pacemaker pulse generator on top. The pulse generator was the secured to the pectoral muscle with a previously placed #0 Ethibond suture. The deep layer was closed using individual sutures consisting of 2-0 Vicryl. A few additional 3-0 Vicryl sutures were used to help approximate the more superficial layer. The skin was then closed using roni. Over top of the roni Bactroban ointment was applied followed by Telfa, followed by Tegaderm dressing. Patient then also received right arm sling. Patient tolerated the procedure well without any immediate complications. The pacemaker pulse generator implant was a Medtronic [place] XT DR SHELLEY Mcqueen, model #W1DR01 with serial #[id number]. The right ventricular lead implanted was Medtronic model #4076-58 cm with serial #[id number]. With the pulse analyzer and bipolar configuration in the operating room for the right ventricular lead the capture threshold was 0.75 volts at 0.4 milliseconds with lead impedance of 1102 ohms and R wave amplitude of 8.2 millivolts. Device-based testing in the operating room for right ventricular lead showed patient to be pacemaker dependent with no R waves and pacing impedance of 931 ohms and capture threshold of 0.25 volts at 0.4 milliseconds. The right atrial lead implanted was [employer] model #4076-52 cm with serial #[id number]. Testing of the right atrial lead and bipolar configuration with the pulse analyzer showed capture threshold of 1.75 volts at 0.4 milliseconds with lead impedance of 703 ohms and P wave amplitude of 3.2 millivolts. Device-based testing in the operating room through the vice in bipolar configuration for the right atrium showed P amplitude of 2.1 millivolts with lead impedance of 646 ohms and capture threshold of 0.5 volts at 0.4 milliseconds. My total time from start to finish for this operation was 2 hours 24 minutes and I would rate the implantation of this pacemaker as 50% more difficult than usual and about 50% more time than usual. MTDD
--- NOTE | 2020-05-20 14:06 | REP ---
FLUOROSCOPIC GUIDED IMAGING CLINICAL: Pacemaker insertion. TECHNIQUE: Single intraoperative fluoroscopic view using portable C-arm technique. FINDINGS: Single view demonstrates pacemaker overlying the right chest wall with leads extending and overlying the right ventricle. IMPRESSION: Status post pacemaker insertion. Total fluoroscopy time 12 minutes 37 seconds. MTDD
--- NOTE | 2020-05-20 14:07 | REP ---
PORTABLE CHEST X-RAY CLINICAL: Status post pacemaker. FINDINGS: Dual-lead pacemaker with leads overlying the right atrium and right ventricle. Stable cardiomegaly. Chronic interstitial changes are noted and superimposed infiltrates cannot be excluded. No effusion. No pneumothorax. Skeletal structures intact. IMPRESSION: * Pacemaker in satisfactory position. * No pneumothorax. * Chronic changes noted. Superimposed multifocal infiltrates cannot be excluded. MTDD
--- NOTE | 2020-05-20 14:08 | REP ---
CHEST X-RAY: 05/04/20 CLINICAL: Status post pacemaker. Evaluate for pneumothorax. TECHNIQUE: PA and lateral. COMPARISON: 05/03/20, 05/02/20. FINDINGS: Pacemaker identified overlying the right upper chest wall with leads overlying the right atrium and right ventricle. There is subtle bluntly to the right costophrenic angle which represents a change from prior examination and may suggest a small pleural effusion. No definite pneumothorax is appreciated although trace right apical pneumothorax cannot definitively be excluded. The cardiac silhouette is stable the lung walker demonstrate diffuse bilateral patchy alveolar infiltrates similar to prior examination. IMPRESSION: 1. Blunting to the right costophrenic angle suggest small pleural effusion. While no definite pneumothorax is identified, a small apical pneumothorax cannot be excluded. Consider inspiration and expiration films for further investigation. 2. Patchy bilateral infiltrates similar to prior examination. MTDD
== END 2020-05-04 14:46 | disposition home or self-care (01) | DRG 243 ==
LOC: M ED 15:58 → M ED INP 17:33 → ENRESERV 18:47 → M PCU 19:55
PROVIDERS: ADMIT Internal Medicine; ATTEND Internal Medicine
PROC: 02H63JZ Insertion of Pacemaker Lead into Right Atrium, Percutaneous Approach (ICD-10-PCS; 2020-05-03)
PROC: 02HK3JZ Insertion of Pacemaker Lead into Right Ventricle, Percutaneous Approach (ICD-10-PCS; 2020-05-03)
PROC: 0JH606Z Insertion of Pacemaker, Dual Chamber into Chest Subcutaneous Tissue and Fascia, Open Approach (ICD-10-PCS; principal; 2020-05-03 14:00)
DX: I44.2 Atrioventricular block, complete (principal); N17.9 Acute kidney failure, unspecified; J98.11 Atelectasis; J45.909 Unspecified asthma, uncomplicated; D86.9 Sarcoidosis, unspecified; I50.9 Heart failure, unspecified; E78.5 Hyperlipidemia, unspecified; K21.9 Gastro-esophageal reflux disease without esophagitis; N18.9 Chronic kidney disease, unspecified; Z79.899 Other long term (current) drug therapy; E66.9 Obesity, unspecified; Z68.39 Body mass index [BMI] 39.0-39.9, adult

== ENCOUNTER → 2020-12-30 | Outpatient (CLI) | payer OTHER ==
[~2020-12-30] MED LIST changes: +ASCO250T20 PO; +ESOM1CAP5 PO
--- NOTE | 2021-01-01 08:50 | REP ---
INDICATION: SACROIDOSIS OF LUNG COMPARISON: 03/03/2020 TECHNIQUE: Axial noncontrast images from the thoracic inlet to the upper abdomen with coronal and sagittal reformations. This CT examination was performed using the following dose reduction techniques: Automated exposure control, adjustment of mA and/or kv according to the patient's size, and use of iterative reconstruction technique. FINDINGS: Diffuse bilateral reticulonodular and scattered ill-defined nodular opacities along with mediastinal and hilar adenopathy is similar to prior examination and consistent with the given history of sarcoidosis. Current examination suggests more numerous lesions bilaterally which may reflect acute active disease. No effusion. No pneumothorax. Tracheobronchial tree is patent. Further evaluation of the mediastinum demonstrates normal stable appearance to the thoracic aorta, pulmonary vasculature, and heart/pericardium. Pacemaker noted. Musculoskeletal structures are intact. Limited upper abdomen demonstrates normal bilateral adrenal glands. IMPRESSION: Findings similar to prior examination although more numerous nodular opacities are now identified. These findings are consistent with the given history of sarcoidosis. <Electronically signed by Andrea Hurst > 01/01/21 0846
== END ==
LOC: M RAD 17:33
PROVIDERS: ATTEND Internal Medicine Pulmonary Disease
DX: D86.2 Sarcoidosis of lung with sarcoidosis of lymph nodes (principal)

== ENCOUNTER 2021-03-03 16:13 | Emergency (ER) | payer OTHER ==
[~2021-03-03] VITALS: Ht 175.3 cm; Wt 114.1 kg
[2021-03-03] MEDS ORDERED: BREO1INH INH (16:20)
--- NOTE | 2021-03-03 16:54 | REP ---
INDICATION: CHEST PAIN. COMPARISON: 05/04/2020 the latest prior TECHNIQUE: Portable FINDINGS: The technique utilized in obtaining the radiograph has magnified the cardiac silhouette and accentuated the interstitial markings. There is cardiomegaly status quo. The dual chamber bipolar pacemaker devices unchanged. The patchy bilateral opacities seen on the prior exam have resolved. The diffuse bilateral reticulonodular scattered ill-defined opacities seen on the CT of the chest of 12/30/2020 are not appreciated on today's plain film portable exam as expected. CT is more sensitive. A few scattered nodular densities cannot be ruled out in the lung walker today. No acute patchy opacities or pleural effusions have developed there is no change in the osseous structures. IMPRESSION: No plain radiographic evidence of acute cardiopulmonary disease, however, consider comparison chest CT to 12/30/2020 if clinically relevant <Electronically signed by Jhony Yang > 03/03/21 0899
[2021-03-03 17:03] LABS: BASO % 0.9 % (0.0-1.0); EOS # 0.2 10^3/uL (0.0-0.5); EOS % 3.4 % (0.0-3.0); HEMATOCRIT 47.5 % (42.0-52.0); HEMOGLOBIN 16.1 g/dl (13.5-17.5); LYMPH # 0.9 10^3/uL (1.5-5.0); LYMPH % 18.2 % (24.0-44.0); MEAN CORPUSCULAR HEMOGLOBIN 29.4 pg (27.0-33.0); MEAN CORPUSCULAR HGB CONC 33.9 g/dl (32.0-36.5); MEAN CORPUSCULAR VOLUME 86.7 fl (80.0-96.0); MONO # 0.5 10^3/uL (0.0-0.8); MONO % 10.9 % (2.0-8.0); NEUTROPHILS # 3.1 10^3/uL (1.5-8.5); NEUTROPHILS % 66.2 % (36.0-66.0); PLATELET COUNT, AUTOMATED 182 10^3/uL (150-450); RED BLOOD COUNT 5.48 10^6/uL (4.30-6.10); WHITE BLOOD COUNT 4.7 10^3/uL (4.0-10.0)
[2021-03-03 17:31] LABS: BLOOD UREA NITROGEN 18 MG/DL (7-18); CALCIUM LEVEL 9.2 MG/DL (8.5-10.1); CARBON DIOXIDE LEVEL 27 MEQ/L (21-32); CHLORIDE LEVEL 108 MEQ/L (98-107); CK-MB VALUE MASS 1.5 NG/ML (<3.6); CPK CREATINE PHOSPHOKINASE 163 U/L (39-308); CREATININE FOR GFR 1.24 MG/DL (0.70-1.30); GLOMERULAR FILTRATION RATE > 60.0 (>56); GLUCOSE, FASTING 96 MG/DL (70-100); MB/CK RELATIVE INDEX 0.92 (< OR =4); SODIUM LEVEL 139 MEQ/L (136-145); TROPONIN I < 0.02 NG/ML (< 0.10)
[2021-03-03] MEDS ORDERED: ASPIRIN 81 MG CHEW TABLET PO ONE (17:40)
[2021-03-03] MEDS ORDERED: ISOVUE-370 76% 100ML VIAL As Ordered ONE (17:56)
[2021-03-03 17:57] LABS: ALBUMIN 3.8 GM/DL (3.2-5.2); ALT/SGPT 31 U/L (12-78); BILIRUBIN,DIRECT 0.1 MG/DL (0.0-0.2); BILIRUBIN,TOTAL 0.5 MG/DL (0.2-1.0); LIPASE 180 U/L (73-393); TOTAL PROTEIN 7.4 GM/DL (6.4-8.2)
[2021-03-03] MEDS: NITROGLYCERIN 0.4 MG SUBL TABLET SL PRN ×3 (18:02→18:13)
[2021-03-03 18:13] VITALS: BP 96/57
[2021-03-03] MEDS ORDERED: NS 500 ML IV ONE (18:20)
--- NOTE | 2021-03-03 18:41 | REP ---
INDICATION: leg pain r/o dvt. TECHNIQUE: Multiple ultrasonographic images of the deep venous structures of the bilateral thighs were obtained from the level of the common femoral vein to the popliteal vein in the longitudinal and transverse scan planes along with Doppler interrogation and color flow Doppler imaging. Visualization of the bilateral posterior tibial veins and peroneal veins attempted. FINDINGS: There is no abnormal echogenic material seen within any of the visualized deep venous structures that would suggest acute thrombosis. Coaptation is unremarkable throughout. Doppler interrogation shows an expected response to respiratory variability and augmentation. The color flow Doppler images show what appears to be a normal vascular pattern throughout. Both right and left posterior tibial veins and the right peroneal veins were fully compressible throughout. The left peroneal vein is not seen. IMPRESSION: There is no ultrasonographic evidence of deep venous thrombosis involving any of the visualized deep venous structures of the bilateral thighs as described above. Full compressibility of the bilateral posterior tibial veins and right peroneal vein noted. Left peroneal vein is non visualized. Accredited by the [employer] in Vascular Peripheral Ultrasound. <Electronically signed by Sam Bolaños > 03/03/21 [id number]
[2021-03-03] MEDS ORDERED: GI COCKTAIL 50ML BTL(HYOSCYAMINE/MAALOX/LIDOCAINE VISCOUS)(1:3:1) PO ONE (19:40)
--- NOTE | 2021-03-03 20:07 | REPVR ---
PROCEDURE INFORMATION: Exam: CTA Chest With Contrast Exam date and time: 03/03/2021 6:56 PM Age: 50 years old Clinical indication: Other: Chest pain TECHNIQUE: Imaging protocol: Computed tomographic angiography of the chest with contrast. 3D rendering (Not supervised by radiologist): MIP and/or 3D reconstructed images were created by the technologist. Radiation optimization: All CT scans at this facility use at least one of these dose optimization techniques: automated exposure control; mA and/or kV adjustment per patient size (includes targeted exams where dose is matched to clinical indication); or iterative reconstruction. Contrast material: ISOVUE 370; Contrast volume: 75 ml; Contrast route: INTRAVENOUS (IV); COMPARISON: CT Chest without contrast 12/30/2020 5:40 PM FINDINGS: Pulmonary arteries: Normal. No pulmonary emboli. Aorta: Unremarkable. No aortic aneurysm. No aortic dissection. Lungs: Reticulonodular airspace opacities and multifocal areas of peribronchial airspace consolidation appears similar to the prior exam. No new infiltrates or masses. Pleural spaces: No pneumothorax. No pleural effusion. Heart: Unremarkable. No cardiomegaly. No pericardial effusion. Lymph nodes: Small mediastinal lymph nodes are unchanged. Bones/joints: Unremarkable. No acute fracture. Soft tissues: Unremarkable. IMPRESSION: 1. Stable changes of pulmonary sarcoidosis with reticulonodular airspace opacities and fibrosis. 2. No acute findings. Electronically signed by: Sandor Rosales On 03/03/2021 20:06:51 PM
[2021-03-03 21:09] LABS: CK-MB VALUE MASS 1.2 NG/ML (<3.6); CPK CREATINE PHOSPHOKINASE 139 U/L (39-308); MB/CK RELATIVE INDEX 0.86 (< OR =4); TROPONIN I < 0.02 NG/ML (< 0.10)
[2021-03-03] MEDS ORDERED: KETO10TAB PO (21:26)
[2021-03-03] MEDS ORDERED: SUCR1TA PO (21:26)
[2021-03-03 21:45] VITALS: BP 138/81
--- NOTE | 2021-03-04 10:55 | ECGEPIP ---
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
--- NOTE | 2021-03-04 10:57 | ECGEPIP ---
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
== END 2021-03-03 21:53 | disposition home or self-care (01) ==
LOC: M ED 16:13
DX: R07.89 Other chest pain (principal); E78.5 Hyperlipidemia, unspecified; K21.9 Gastro-esophageal reflux disease without esophagitis; D86.89 Sarcoidosis of other sites; Z95.0 Presence of cardiac pacemaker; Z79.899 Other long term (current) drug therapy; F17.220 Nicotine dependence, chewing tobacco, uncomplicated
CPT/HCPCS: 71045; 71275; 80048; 80076; 82550; 82553; 83690; 84484; 85025; 93005; 93041; 93970; 94760; 96360; 99285; Q9967

== ENCOUNTER → 2021-12-24 | Outpatient (CLI) | payer OTHER ==
[~2021-12-24] MED LIST changes: +BREO1INH INH; +KETO10TAB PO; +SUCR1TA PO
[2021-12-24 09:32] LABS: HEMATOCRIT 48.7 % (42.0-52.0); HEMOGLOBIN 16.2 g/dl (13.5-17.5); MEAN CORPUSCULAR HEMOGLOBIN 29.5 pg (27.0-33.0); MEAN CORPUSCULAR HGB CONC 33.3 g/dl (32.0-36.5); MEAN CORPUSCULAR VOLUME 88.7 fl (80.0-96.0); PLATELET COUNT, AUTOMATED 184 10^3/uL (150-450); RED BLOOD COUNT 5.49 10^6/uL (4.30-6.10); WHITE BLOOD COUNT 4.5 10^3/uL (4.0-10.0)
[2021-12-24 09:57] LABS: ALBUMIN 3.6 GM/DL (3.2-5.2); ALT/SGPT 37 U/L (12-78); BLOOD UREA NITROGEN 23 MG/DL (7-18); CALCIUM LEVEL 9.2 MG/DL (8.5-10.1); CARBON DIOXIDE LEVEL 28 MEQ/L (21-32); CHLORIDE LEVEL 109 MEQ/L (98-107); CHOLESTEROL LEVEL 169 MG/DL (<200); CHOLESTEROL RISK RATIO 4.447 (<5); CREATININE FOR GFR 1.15 MG/DL (0.70-1.30); GLOMERULAR FILTRATION RATE > 60.0 (>56); GLUCOSE, FASTING 93 MG/DL (70-100); HDL CHOLESTEROL 38 MG/DL (>40); LDL CHOLESTEROL 108 MG/DL (<100); NON-HDL-C 131 MG/DL; POTASSIUM SERUM 4.2 MEQ/L (3.5-5.1); SODIUM LEVEL 142 MEQ/L (136-145); TOTAL PROTEIN 7.2 GM/DL (6.4-8.2); TRIGLYCERIDES LEVEL 114 MG/DL (<150)
== END ==
LOC: M LAB 09:05
PROVIDERS: ATTEND Physician Assistant
DX: I44.2 Atrioventricular block, complete (principal); E78.00 Pure hypercholesterolemia, unspecified

== ENCOUNTER → 2022-03-28 | Outpatient (REF) | payer OTHER | LOC: M LAB REF 09:05 | PROVIDERS: ATTEND Surgery | DX: L72.0 Epidermal cyst (principal) ==

== ENCOUNTER 2022-10-06 16:19 | Emergency (ER) | payer OTHER ==
[~2022-10-06] VITALS: Ht 175.3 cm; Wt 116.4 kg
[2022-10-06] MEDS ORDERED: ALBU8.5H (16:28)
[2022-10-06 17:26] LABS: INR 0.93; PROTHROMBIN TIME 12.7 SECONDS (12.5-14.5)
[2022-10-06] MEDS ORDERED: ISOVUE-370 76% 100ML VIAL As Ordered ONE (17:26)
[2022-10-06 17:27] LABS: PARTIAL THROMBOPLASTIN TIME 26.2 SECONDS (24.8-34.2)
[2022-10-06 17:46] LABS: RSV AMPLIFICATION NEGATIVE (NEGATIVE)
[2022-10-06 17:55] LABS: BASO % 0.4 % (0.0-1.0); EOS # 0.3 10^3/uL (0.0-0.5); EOS % 5.1 % (0.0-3.0); HEMATOCRIT 46.9 % (42.0-52.0); HEMOGLOBIN 15.8 g/dl (13.5-17.5); LYMPH # 0.7 10^3/uL (1.5-5.0); LYMPH % 13.8 % (24.0-44.0); MEAN CORPUSCULAR HEMOGLOBIN 29.4 pg (27.0-33.0); MEAN CORPUSCULAR HGB CONC 33.7 g/dl (32.0-36.5); MEAN CORPUSCULAR VOLUME 87.2 fl (80.0-96.0); MONO # 0.5 10^3/uL (0.0-0.8); MONO % 9.8 % (2.0-8.0); NEUTROPHILS # 3.8 10^3/uL (1.5-8.5); NEUTROPHILS % 70.7 % (36.0-66.0); PLATELET COUNT, AUTOMATED 186 10^3/uL (150-450); RED BLOOD COUNT 5.38 10^6/uL (4.30-6.10); WHITE BLOOD COUNT 5.3 10^3/uL (4.0-10.0)
[2022-10-06 18:21] LABS: CK-MB VALUE MASS < 1.0 NG/ML (<3.6); LIPASE 45 U/L (12-53)
[2022-10-06 18:23] LABS: ALBUMIN 3.5 G/DL (3.2-5.2); ALKALINE PHOSPHATASE 65 U/L (46-116); ALT/SGPT 29 U/L (7.0-40); AST/SGOT 21 U/L (<34); BILIRUBIN,DIRECT 0.2 MG/DL (<0.4); BILIRUBIN,TOTAL 0.5 MG/DL (0.3-1.2); BLOOD UREA NITROGEN 18 MG/DL (9-23); CALCIUM LEVEL 8.9 MG/DL (8.5-10.1); CARBON DIOXIDE LEVEL 24 MMOL/L (20-31); CHLORIDE LEVEL 109 MMOL/L (98-107); CREATININE FOR GFR 1.01 MG/DL (0.70-1.30); GLOMERULAR FILTRATION RATE > 60.0 (>56); GLUCOSE, FASTING 118 MG/DL (60-100); POTASSIUM SERUM 3.7 MMOL/L (3.5-5.1); SODIUM LEVEL 140 MMOL/L (136-145); TOTAL PROTEIN 6.6 G/DL (5.7-8.2)
[2022-10-06 18:25] LABS: FREE T4 1.23 NG/DL (0.89-1.76); THYROID STIMULATING HORMONE 0.375 uIU/ML (0.55-4.78)
[2022-10-06 18:28] LABS: CPK CREATINE PHOSPHOKINASE 116 U/L (46-171); MB/CK RELATIVE INDEX 0.86 (< OR =4)
[2022-10-06 19:15] LABS: CK-MB VALUE MASS 1.6 NG/ML (<3.6)
[2022-10-06 19:18] LABS: MB/CK RELATIVE INDEX 1.39 (< OR =4)
[2022-10-06] MEDS ORDERED: APIXABAN 5 MG TAB (ELIQUIS) PO ONE (20:10)
[2022-10-06] MEDS ORDERED: ELIQ5TAB PO (20:11)
[2022-10-06 20:15] VITALS: BP 125/80
== END 2022-10-06 20:29 | disposition home or self-care (01) ==
LOC: M ED 16:19
DX: R07.89 Other chest pain (principal); I26.99 Other pulmonary embolism without acute cor pulmonale; D86.9 Sarcoidosis, unspecified; E78.5 Hyperlipidemia, unspecified; Z95.0 Presence of cardiac pacemaker; Z82.49 Family history of ischemic heart disease and other diseases of the circulatory system; Z79.899 Other long term (current) drug therapy

== ENCOUNTER → 2023-01-07 | Outpatient (CLI) | payer OTHER ==
[~2023-01-07] MED LIST changes: +ALBU8.5H; +ELIQ5TAB PO
[2023-01-07 06:52] LABS: BASO % 0.5 % (0.0-1.0); EOS # 0.2 10^3/uL (0.0-0.5); EOS % 4.6 % (0.0-3.0); HEMATOCRIT 46.5 % (42.0-52.0); HEMOGLOBIN 15.5 g/dl (13.5-17.5); LYMPH # 0.5 10^3/uL (1.5-5.0); LYMPH % 11.4 % (24.0-44.0); MEAN CORPUSCULAR HEMOGLOBIN 29.8 pg (27.0-33.0); MEAN CORPUSCULAR HGB CONC 33.3 g/dl (32.0-36.5); MEAN CORPUSCULAR VOLUME 89.3 fl (80.0-96.0); MONO # 0.5 10^3/uL (0.0-0.8); MONO % 12.1 % (2.0-8.0); NEUTROPHILS # 2.9 10^3/uL (1.5-8.5); NEUTROPHILS % 71.2 % (36.0-66.0); PLATELET COUNT, AUTOMATED 162 10^3/uL (150-450); RED BLOOD COUNT 5.21 10^6/uL (4.30-6.10); WHITE BLOOD COUNT 4.1 10^3/uL (4.0-10.0)
[2023-01-07 07:24] LABS: ALBUMIN 3.5 G/DL (3.2-5.2); ALKALINE PHOSPHATASE 69 U/L (46-116); ALT/SGPT 35 U/L (7.0-40); AST/SGOT 35 U/L (<34); BILIRUBIN,TOTAL 0.5 MG/DL (0.3-1.2); BLOOD UREA NITROGEN 29 MG/DL (9-23); CALCIUM LEVEL 8.9 MG/DL (8.5-10.1); CARBON DIOXIDE LEVEL 25 MMOL/L (20-31); CHLORIDE LEVEL 111 MMOL/L (98-107); CHOLESTEROL LEVEL 176 MG/DL (<200); CHOLESTEROL RISK RATIO 4.95 (<5); CREATININE FOR GFR 1.24 MG/DL (0.70-1.30); GLOMERULAR FILTRATION RATE > 60.0 (>56); GLUCOSE, FASTING 97 MG/DL (60-100); HDL CHOLESTEROL 35.5 MG/DL (>40); LDL CHOLESTEROL 108.9 MG/DL (<100); NON-HDL-C 140.5 MG/DL; POTASSIUM SERUM 4.1 MMOL/L (3.5-5.1); SODIUM LEVEL 141 MMOL/L (136-145); TOTAL PROTEIN 6.6 G/DL (5.7-8.2); TRIGLYCERIDES LEVEL 158 MG/DL (<150)
== END ==
LOC: M LAB 06:30
PROVIDERS: ATTEND Nurse Practitioner Family
DX: D86.0 Sarcoidosis of lung (principal); I26.99 Other pulmonary embolism without acute cor pulmonale; E78.2 Mixed hyperlipidemia

== ENCOUNTER → 2023-01-07 | Outpatient (CLI) | payer OTHER | LOC: M RAD 01-04 17:02 | PROVIDERS: ATTEND Internal Medicine Pulmonary Disease | DX: R91.8 Other nonspecific abnormal finding of lung field (principal) ==

== ENCOUNTER → 2023-06-25 | Outpatient (CLI) | payer OTHER | LOC: M PLAIMG 07:48 | PROVIDERS: ATTEND Nurse Practitioner Family | DX: M25.561 Pain in right knee (principal); M17.11 Unilateral primary osteoarthritis, right knee ==

== ENCOUNTER → 2023-07-04 | Outpatient (REF) | LOC: M PLAIMG 11:06 | PROVIDERS: ATTEND Internal Medicine | DX: R06.02 Shortness of breath (principal) ==

== ENCOUNTER → 2024-01-10 | Outpatient (CLI) | payer OTHER ==
[2024-01-10 09:22] LABS: BASO % 0.4 % (0.0-1.0); EOS # 0.2 10^3/uL (0.0-0.5); EOS % 4.9 % (0.0-3.0); HEMATOCRIT 47.3 % (42.0-52.0); HEMOGLOBIN 16.2 g/dl (13.5-17.5); LYMPH # 0.7 10^3/uL (1.5-5.0); LYMPH % 16.4 % (24.0-44.0); MEAN CORPUSCULAR HEMOGLOBIN 29.8 pg (27.0-33.0); MEAN CORPUSCULAR HGB CONC 34.2 g/dl (32.0-36.5); MEAN CORPUSCULAR VOLUME 87.1 fl (80.0-96.0); MONO # 0.6 10^3/uL (0.0-0.8); MONO % 12.3 % (2.0-8.0); NEUTROPHILS # 2.9 10^3/uL (1.5-8.5); PLATELET COUNT, AUTOMATED 183 10^3/uL (150-450); RED BLOOD COUNT 5.43 10^6/uL (4.30-6.10); WHITE BLOOD COUNT 4.5 10^3/uL (4.0-10.0)
[2024-01-10 09:45] LABS: ALBUMIN 3.5 G/DL (3.2-5.2); ALKALINE PHOSPHATASE 61 U/L (46-116); ALT/SGPT 24 U/L (7.0-40); AST/SGOT 13 U/L (<34); BILIRUBIN,TOTAL 0.8 MG/DL (0.3-1.2); BLOOD UREA NITROGEN 25 MG/DL (9-23); CALCIUM LEVEL 9.1 MG/DL (8.5-10.1); CARBON DIOXIDE LEVEL 27 MMOL/L (20-31); CHLORIDE LEVEL 107 MMOL/L (98-107); CHOLESTEROL LEVEL 174 MG/DL (<200); CHOLESTEROL RISK RATIO 4.54 (<5); CREATININE FOR GFR 1.13 MG/DL (0.70-1.30); GLOMERULAR FILTRATION RATE > 60.0 (>56); GLUCOSE, FASTING 92 MG/DL (60-100); HDL CHOLESTEROL 38.3 MG/DL (>40); LDL CHOLESTEROL 114.1 MG/DL (<100); NON-HDL-C 135.7 MG/DL; POTASSIUM SERUM 4.1 MMOL/L (3.5-5.1); SODIUM LEVEL 139 MMOL/L (136-145); TOTAL PROTEIN 6.5 G/DL (5.7-8.2); TRIGLYCERIDES LEVEL 108 MG/DL (<150)
== END ==
LOC: M LAB 07:57
PROVIDERS: ATTEND Registered Nurse
DX: Z00.00 Encounter for general adult medical examination without abnormal findings (principal)

== ENCOUNTER 2024-10-17 11:09 | Emergency (ER) | payer OTHER ==
[~2024-10-17] VITALS: Ht 175.3 cm; Wt 122.5 kg
[~2024-10-17 11:09] MED LIST changes: +ESOM1CAP20 PO; -ESOM1CAP5 PO
[2024-10-17 11:30] VITALS: TEMP 98.9
[2024-10-17] MEDS: diazePAM 5MG TABLET PO ONE (13:40)
[2024-10-17] MEDS: ACETAMINOPHEN 500 MG TAB PO ONE (13:40)
[2024-10-17 13:44] VITALS: BP 156/84; O2SAT 98
[2024-10-17] MEDS ORDERED: MEDR4TAB PO (14:36)
[2024-10-17] MEDS ORDERED: TIZA4CAP PO (14:36)
== END 2024-10-17 14:43 | disposition home or self-care (01) ==
LOC: M ED 11:09
DX: M54.2 Cervicalgia (principal); M75.32 Calcific tendinitis of left shoulder; E78.5 Hyperlipidemia, unspecified; K21.9 Gastro-esophageal reflux disease without esophagitis; Z79.51 Long term (current) use of inhaled steroids; Z79.899 Other long term (current) drug therapy

== ENCOUNTER → 2025-06-23 | Outpatient (CLI) | payer OTHER ==
[~2025-06-23] MED LIST changes: +MEDR4TAB PO; +TIZA4CAP PO
[2025-06-23 07:45] LABS: PLATELET COUNT, AUTOMATED 190 10^3/uL (150-450)
[2025-06-23 08:15] LABS: ALT/SGPT 26.0 U/L (7.0-40); AST/SGOT 27.0 U/L (<34); CALCIUM LEVEL 9.0 MG/DL (8.5-10.1); CARBON DIOXIDE LEVEL 28.0 MMOL/L (20-31); CHLORIDE LEVEL 104.0 MMOL/L (98-107); CHOLESTEROL LEVEL 171.0 MG/DL (<200); CHOLESTEROL RISK RATIO 4.41 (<5); CREATININE FOR GFR 1.24 MG/DL (0.70-1.30); GLOMERULAR FILTRATION RATE 68.7 (>56); LDL CHOLESTEROL 111.7 MG/DL (<100); MAGNESIUM LEVEL 2.0 MG/DL (1.8-2.4); NON-HDL-C 132.3 MG/DL; POTASSIUM SERUM 3.8 MMOL/L (3.5-5.1); SODIUM LEVEL 140.0 MMOL/L (136-145); TRIGLYCERIDES LEVEL 103.0 MG/DL (<150)
[2025-06-23 08:19] LABS: FREE T4 1.48 NG/DL (0.89-1.76)
== END ==
LOC: M LAB 07:12
PROVIDERS: ATTEND Physician Assistant
DX: I47.10 Supraventricular tachycardia, unspecified (principal); E78.00 Pure hypercholesterolemia, unspecified